=== PATIENT | male | born 1950 | race Caucasian/White ===

== ENCOUNTER → 2019-10-17 15:36 | Outpatient (CLI) | payer MEDICARE, OTHER, SELFPAY ==
--- NOTE | 2019-10-17 15:58 | CT_ITS ---
STUDY: CT RIGHT KNEE WITHOUT CONTRAST REASON FOR EXAM: Male, 69 years old. osteoarthritis, juan - Images are for roboted assistance surgery. (No other history is available). RADIATION DOSAGE (If Supplied By Facility): CTDIvol = ( 32.19 ) mGy, DLP = ( 1989.50 ) mGycm TECHNIQUE: Transaxial CT imaging of the knee was performed. Coronal and sagittal images were reformatted. Individualized dose optimization techniques were used for this CT. COMPARISON: None. FINDINGS: The hip and ankle are in anatomic alignment. Cortical margins are intact. Soft tissues are unremarkable. Severe narrowing sclerosis and osteophytosis of the medial and lateral femoral condyle and medial and lateral tibial plateau. Slight lateral subluxation. Normal proximal tibiofibular articulation. There is a moderate joint effusion. The quadriceps tendon is grossly normal. The patellar tendon is grossly normal. Normal Hoffa''s fat pad. The soft tissues are unremarkable. CT/Extremity Lower without Contra IMPRESSION: Severe tricompartmental osteoarthrosis and lateral subluxation of the tibia. Electronically Signed: Jayden Davenport MD at 23:01 EDT , Service support ,
== END ==
PROVIDERS: PCP Family Medicine; Referring Provider Orthopaedic Surgery; Visit Provider Orthopaedic Surgery
DX: M17.11 Unilateral primary osteoarthritis, right knee (principal)
CPT/HCPCS: 73700; 93005

== ENCOUNTER 2019-11-06 09:45 | Observation (INO) | payer MEDICARE, OTHER, SELFPAY ==
--- NOTE | 2019-10-17 15:55 | SDCEKG_ITS ---
Test Reason : PRE-OP Blood Pressure : / mmHG Vent. Rate : 077 BPM Atrial Rate : 077 BPM P-R Int : 186 ms QRS Dur : 092 ms QT Int : 370 ms P-R-T Axes : 037 -14 042 degrees QTc Int : 418 ms Normal sinus rhythm Normal ECG When compared with ECG of 23-SEP-2006 16:18, No significant change was found Confirmed by MONICA WEBSTER, NIKKI ([id number]), book editor LUKE HUSSEIN ([id number]) on 10/24/2019 3:46:59 PM Referred By: Luis Eduardo Bear Confirmed By:NIKKI ANDERSON MD
[2019-10-17 17:16] LABS: Absolute Lymphocyte Count 1.02 X10^3/uL (0.83-4.51); Basophil# 0.01 X10^3/uL; Basophil% 0.1 % (0-1); Eosinophil# 0.13 X10^3/uL; Eosinophils% 1.3 % (0-5); Hematocrit 40.3 % (40-54); Hemoglobin 13.1 g/dL (13.0-16.5); Lymphocyte # 1.02 X10^3/ul (4.0); Lymphocyte % 10.3 % (19-41); Mean Corp Hgb Conc 32.5 g/dL (32-36); Mean Corpuscular Hgb 30.3 pg (27.0-32.0); Mean Corpuscular Volume 93.3 fL (80-94); Mean Platelet Vol. 10.9 fl (6.2-12.0); Monocyte# 0.67 X10^3/uL; Monocyte% 6.8 % (0-10); NRBC Flagged by Analyzer 0 % (0-5); Neutrophil # 8.02 X10^3/uL (2.7-7.7); Neutrophil % 81.3 % (47-70); Platelet Count 321 K/mm3 (150-450); RBC Distribution Width CV 13.2 % (11.6-14.6); RBC Distribution Width SD 45.9 fl (35.1-43.9); Red Blood Count 4.32 M/mm3 (4.6-6.2); White Blood Count 9.9 K/mm3 (4.4-11.0)
[2019-10-17 18:13] LABS: Anion Gap 6 (5-15); BUN 15 mg/dL (7-18); BUN/Creat Ratio 18.5 RATIO (10-20); Calcium,Total 9.3 mg/dL (8.5-10.1); Chloride 102 mmol/L (98-107); Creatinine, Serum 0.81 mg/dL (0.70-1.30); EST Glomerular Filtration Rate 101 mL/min (>60); Est Glom Filt Rate - Afr Amer 122 mL/min (>60); Glucose 94 mg/dL (74-106); Potassium 4.2 mmol/L (3.5-5.1); Sodium Level 138 mmol/L (136-145)
[2019-11-01 12:21] LABS: Absolute Lymphocyte Count 0.88 X10^3/uL (0.83-4.51); Absolute Neutrophil Count 4.7 X10^3/uL (2.0-7.7); Basophil# 0.02 X10^3/uL; Basophil% 0.3 % (0-1); Eosinophil# 0.07 X10^3/uL; Eosinophils% 1.1 % (0-5); Hematocrit 40.1 % (37-54); Hemoglobin 12.9 g/dL (13.0-16.5); Lymphocyte # 0.88 X10^3/ul (4.0); Mean Corp Hgb Conc 32.2 g/dL (32-36); Mean Corpuscular Volume 93.3 fL (80-94); Mean Platelet Vol. 10.9 fl (6.2-12.0); Monocyte# 0.59 X10^3/uL; Monocyte% 9.4 % (0-10); NRBC Flagged by Analyzer 0 % (0-5); Neutrophil # 4.71 X10^3/uL (2.7-7.7); Platelet Count 272 K/mm3 (150-450); RBC Distribution Width CV 12.9 % (11.6-14.6); RBC Distribution Width SD 43.5 fl (35.1-43.9); White Blood Count 6.3 K/mm3 (4.4-11.0)
[2019-11-01 12:57] LABS: Anion Gap 9 (5-15); BUN 11 mg/dL (7-18); BUN/Creat Ratio 13.9 RATIO (10-20); Calcium,Total 9.2 mg/dL (8.5-10.1); Chloride 103 mmol/L (98-107); Creatinine, Serum 0.79 mg/dL (0.55-1.30); EST Glomerular Filtration Rate 103 mL/min (>60); Est Glom Filt Rate - Afr Amer 125 mL/min (>60); Glucose 102 mg/dL (74-106); Sodium Level 140 mmol/L (136-145)
[2019-11-01 15:38] LABS: Hemoglobin A1c 5.2 % (3.8-5.6)
[2019-11-03 15:31] LABS: Probe Check PASS; Specimen Processing Control PASS
[2019-11-06] VITALS (13 sets, daily range): BP systolic 109–197; BP diastolic 49–95; PULSE 61–96; RESP 16–18; TEMP 36.5–37; O2SAT 98–100; BMI 43.0
[2019-11-06] MEDS: Acetaminophen 500 MG Tablet 1000 MG PO ×3 (08:52→22:11)
[2019-11-06] MEDS: Lactated Ringers 1,000 ML 125 ML IV ×4 (09:11→22:18)
[2019-11-06 09:36] LABS: Bedside Glucose 109 mg/dL (70-110)
--- NOTE | 2019-11-06 10:15 | KNEE_PTH ---
PATIENT: BRETT SINGER LOC: [facility] U#:[id number] AGE/SX: 69/M ROOM: [facility]314 RE11/06/[address]: Dr. Luis Eduardo Bear DO : 1950 BED: 1 DIS: 11/07/2019 SPEC #: [id number] RECD: 11/06/19 13:56 STATUS: LANG REAmy #: [id number] ACE: 11/06/19 10:[address]: Luis Eduardo Bear DEPT: SURGICAL PATHOLOGY RECD BY: Rere Singh ENTERED: 11/06/19 14:53 SP TYPE: TOTAL KNEE OTHR DR: MD Dr. Dakota Henderson III, MD Tissues: Knee, NOS Procedures: Decalcification bone/plaque Surgery Specimen Level IV HEADER OPERATION: ERAS, total knee replacement robotic arm assist PRE-OP DIAGNOSIS: Unilateral primary osteoarthritis TISSUE SUBMITTED: Right knee bone MICROSCOPIC DIAGNOSIS Right knee, total knee replacement: Pieces of bone with degenerative osteoarthritic changes. Fibroadipose tissue, fibroconnective tissue and reactive synovial tissue. Focal changes consistent with pseudogout. BELKIS:ankita 11/10/19 MICROSCOPIC DESCRIPTION Slides are reviewed. GROSS DESCRIPTION Received is one container designated right knee bone. The specimen consists of multiple fragments of live-yellow bone measuring in aggregate 11 x 10 x 3.5 cm. Also in the specimen container are multiple fragments of yellow-white soft tissue measuring in aggregate 11 x 8 x 3 cm. A number of bony fragments contain articular surfaces consistent with tibial plateau and femoral condyle and displaying prominent osteophyte formation, eburnation, and bone erosion. Senior Credit Analyst sections are submitted in two cassettes as follows: 1 - soft tissue, 2 - bone after decalcification. / BELKIS:ankita 11/07/19 TC:5 CPT: 96104, 70497
--- NOTE | 2019-11-06 13:45 | RAD_ITS ---
STUDY: X-RAY - RIGHT KNEE REASON FOR EXAM: Postop knee arthroplasty. TECHNIQUE: 2 view(s) of the knee. COMPARISON: CT images 10/17/2019. FINDINGS: There is a right total knee arthroplasty without evidence of complication. There is gas in the soft tissues and overlying skin chely. RAD/Knee 1 or 2 Views IMPRESSION: Uncomplicated right total knee arthroplasty. Electronically Signed: Jameson Sevilla MD at 14:24 EDT Tel , Service support ,
[2019-11-06 13:51] LABS: Bedside Glucose 81 mg/dL (70-110)
[2019-11-06 14:05] LABS: Hematocrit 38.1 % (40-54); Hemoglobin 12.4 g/dL (13.0-16.5); Mean Corp Hgb Conc 32.5 g/dL (32-36); Mean Corpuscular Hgb 30.3 pg (27.0-32.0); Mean Corpuscular Volume 93.2 fL (80-94); Mean Platelet Vol. 10.5 fl (6.2-12.0); Platelet Count 290 K/mm3 (150-450); RBC Distribution Width CV 12.8 % (11.6-14.6); RBC Distribution Width SD 43.7 fl (35.1-43.9); Red Blood Count 4.09 M/mm3 (4.6-6.2); White Blood Count 9.3 K/mm3 (4.4-11.0)
[2019-11-06 14:10] LABS: Anion Gap 5 (5-15); BUN 8 mg/dL (7-18); BUN/Creat Ratio 11.1 RATIO (10-20); Calcium,Total 9.1 mg/dL (8.5-10.1); Chloride 108 mmol/L (98-107); Creatinine, Serum 0.72 mg/dL (0.70-1.30); EST Glomerular Filtration Rate 115 mL/min (>60); Est Glom Filt Rate - Afr Amer 139 mL/min (>60); Estimated Creatinine Clearance 76.35 ml/min; Glucose 104 mg/dL (74-106); Potassium 3.8 mmol/L (3.5-5.1); Sodium Level 142 mmol/L (136-145)
[2019-11-06] MEDS: hydroCHLOROthiazide 6.25mg TAB 6.25 MG PO (15:38)
[2019-11-06] MEDS: Gabapentin 600 MG Tablet PO (16:20)
[2019-11-06] MEDS: Bisoprolol Fumarate 5 MG Tablet 10 MG PO (16:21)
[2019-11-06] MEDS: Aspirin 325 MG Tablet PO (16:21)
[2019-11-06] MEDS: metFORMIN HCl 500 MG Tablet PO (17:40)
[2019-11-06] MEDS: Cefazolin 1 GM/50 ML BAG IV (18:54)
[2019-11-06] MEDS: Atorvastatin Calcium 40 MG Tablet PO (22:09)
[2019-11-06] MEDS: oxyCODONE 5 MG Tablet PO (22:11)
[2019-11-06] MEDS: Senna/Docusate Sodium 1 Tablet 2 TABLET PO (22:11)
[2019-11-07 02:55] VITALS: BP 136/81; PULSE 66; RESP 18; TEMP 37.1; O2SAT 99; BMI 43.0
[2019-11-07] MEDS: Cefazolin 1 GM/50 ML BAG IV (02:57)
[2019-11-07 05:54] LABS: Hematocrit 32.2 % (40-54); Hemoglobin 10.5 g/dL (13.0-16.5); Mean Corp Hgb Conc 32.6 g/dL (32-36); Mean Corpuscular Hgb 30.6 pg (27.0-32.0); Mean Corpuscular Volume 93.9 fL (80-94); Mean Platelet Vol. 10.7 fl (6.2-12.0); Platelet Count 227 K/mm3 (150-450); RBC Distribution Width CV 12.9 % (11.6-14.6); RBC Distribution Width SD 43.8 fl (35.1-43.9); Red Blood Count 3.43 M/mm3 (4.6-6.2); White Blood Count 10.1 K/mm3 (4.4-11.0)
[2019-11-07] MEDS: oxyCODONE 5 MG Tablet PO ×2 (05:58→10:54)
[2019-11-07] MEDS: Acetaminophen 500 MG Tablet 1000 MG PO ×2 (05:58→13:28)
[2019-11-07] MEDS: Lactated Ringers 1,000 ML 125 ML IV (05:58)
[2019-11-07 06:05] LABS: Anion Gap 8 (5-15); BUN 9 mg/dL (7-18); BUN/Creat Ratio 12.9 RATIO (10-20); Calcium,Total 8.4 mg/dL (8.5-10.1); Chloride 103 mmol/L (98-107); EST Glomerular Filtration Rate 120 mL/min (>60); Est Glom Filt Rate - Afr Amer 145 mL/min (>60); Estimated Creatinine Clearance 76.35 ml/min; Glucose 121 mg/dL (74-106); Potassium 3.7 mmol/L (3.5-5.1); Sodium Level 139 mmol/L (136-145)
[2019-11-07 07:23] VITALS: PULSE 80; BMI 43.0
[2019-11-07] MEDS: Allopurinol 100 MG Tablet 200 MG PO (07:38)
[2019-11-07] MEDS: Senna/Docusate Sodium 1 Tablet 2 TABLET PO (07:41)
[2019-11-07] MEDS: Lisinopril 40 MG Tablet PO (07:42)
[2019-11-07] MEDS: amLODIPine 10 MG Tablet PO (07:42)
[2019-11-07] MEDS: Aspirin 325 MG Tablet PO (07:42)
[2019-11-07 07:44] VITALS: BP 126/65; PULSE 71; RESP 18; TEMP 36.9; O2SAT 97
--- NOTE | 2019-11-07 07:49 | PCM.PN.ORT ---
Subjective: Patient sitting at bedside eating breakfast. Patient states pain is well-managed. Patient denies chest pain, shortness of breath, calf pain, nausea vomiting. Patient states he is ready for discharge home today. Objective: Dressing is clean dry intact. Negative signs or symptoms of DVT. Vital signs labs were all reviewed and noted in the medical record. Patient is afebrile. Patient has good plantar flexion dorsiflexion of the operative leg foot. Patient has no respiratory distress, speaking in full sentences. - Physical Exam Vitals/I&O's: Vital Signs Temp Pulse Resp BP Pulse Ox 98.5 F 71 18 126/65 H 97 11/07/19 07:44 11/07/19 07:44 11/07/19 07:44 11/07/19 07:44 11/07/19 07:44 Oxygen Flow Rate (L/min) 6 Oxygen Delivery Method Room Air Weight: 140 kg Body Mass Index (BMI) 43.0 Finger Stick Blood Glucose 81 Intake and Output for Last 24 Hours 11/05/19 11/06/19 11/07/19 23:59 23:59 23:59 Intake Total 3462.08 / 3462.08 1322.91 / 1322.91 Output Total 1250 / 1250 650 / 650 Balance 2212.08 / 2212.08 672.91 / 672.91 General: Alert, Oriented x3 HEENT: PERRLA Oral: Moist Mucosa Neurological: Cranial nerves II-XII grossly intact Psych/Mental Status: Normal Affect, Alert and oriented to time, place, person, mood and affect Laboratory Results 11/06/19 08:47: POC Glucose 109 11/06/19 13:44: POC Glucose 81 11/06/19 13:50: WBC 9.3, RBC 4.09 L, Hgb 12.4 L, Hct 38.1 L, MCV 93.2, MCH 30.3, MCHC 32.5, RDW Std Deviation 43.7, RDW Coeff of Baldev 12.8, Plt Count 290, MPV 10.5 11/06/19 13:50: Sodium 142, Potassium 3.8, Chloride 108 H, Carbon Dioxide 29.0, Anion Gap 5, BUN 8, Creatinine 0.72, Estim Creat Clear Calc 76.35, Est GFR (MDRD) Af Amer 139, Est GFR (MDRD) Non-Af 115, BUN/Creatinine Ratio 11.1, Glucose 104, Calcium 9.1 11/07/19 05:42: WBC 10.1, RBC 3.43 L, Hgb 10.5 L, Hct 32.2 L, MCV 93.9, MCH 30.6, MCHC 32.6, RDW Std Deviation 43.8, RDW Coeff of Baldev 12.9, Plt Count 227, MPV 10.7 11/07/19 05:42: Sodium 139, Potassium 3.7, Chloride 103, Carbon Dioxide 28.0, Anion Gap 8, BUN 9, Creatinine 0.70, Estim Creat Clear Calc 76.35, Est GFR (MDRD) Af Amer 145, Est GFR (MDRD) Non-Af 120, BUN/Creatinine Ratio 12.9, Glucose 121 H, Calcium 8.4 L Current Medications Acetaminophen (Tylenol) 1,000 mg PO Q8 [facility] Last Admin: 11/07/19 05:58 Dose: 1,000 mg Documented by: Allopurinol (Zyloprim) 200 mg PO DAILY@0800 [facility] Last Admin: 11/07/19 07:38 Dose: 200 mg Documented by: Amlodipine Besylate (Norvasc) 10 mg PO DAILY [facility] Last Admin: 11/07/19 07:42 Dose: 10 mg Documented by: Aspirin (Aspirin) 325 mg PO BIDCM [facility] Last Admin: 11/07/19 07:42 Dose: 325 mg Documented by: Atorvastatin Calcium (Lipitor) 40 mg PO QHS [facility] Last Admin: 11/06/19 22:09 Dose: 40 mg Documented by: Bisoprolol Fumarate (Zebeta) 10 mg PO DAILY [facility] Last Admin: 11/06/19 16:21 Dose: 10 mg Documented by: Cholecalciferol (Vitamin D (25mcg)) 2,000 unit PO DAILY [facility] Hydrochlorothiazide () 6.25 mg PO DAILY [facility] Last Admin: 11/06/19 15:38 Dose: 6.25 mg Documented by: Insulin Human Lispro (Humalog Kwikpen (Bkc)) 1 - 6 unit SC Q4H PRN PRN; Protocol PRN Reason: BG>/= 180, SEE PROTOCOL Lisinopril (Zestril) 40 mg PO DAILY [facility] Last Admin: 11/07/19 07:42 Dose: 40 mg Documented by: [facility] Last Admin: 11/06/19 17:40 Dose: 500 mg Documented by: Ondansetron HCl (Zofran) 4 mg IV Q8H PRN PRN PRN Reason: NAUSEA Oxycodone HCl (Oxyir) 5 - 10 mg PO Q4H PRN PRN PRN Reason: Pain Score 4-10/10 Last Admin: 11/07/19 05:58 Dose: 5 mg Documented by: Promethazine HCl (Phenergan) 12.5 mg IM Q6H PRN PRN; Protocol PRN Reason: NAUSEA/VOMITING Senna/Docusate Sodium (Senokot-S, Kinsey-Colace) 2 tablet PO BID [facility] Last Admin: 11/07/19 07:41 Dose: 2 tablet Documented by: Sodium Chloride () 10 - 40 ml IV UD PRN PRN Reason: SALINE FLUSH Medical Necessity - Tobacco Use Smoking Status: Former smoker Assessment/Plan Status post right total knee arthroplasty Plan 1. Continue all pain medications as prescribed 2. Continue physical therapy today, weight-bear as tolerated with walker 3. Aspirin 325 mg 1 p.o. daily x30 days for postop DVT prophylaxis 4. Encourage incentive spirometry 5. Discharge home today after p.m. therapy 6. Follow-up as scheduled, see pink sheet 7. Continue physical therapy outpatient at [facility] [place]
--- NOTE | 2019-11-07 07:56 | DCINST_ITS ---
Discharge Diet: No Restrictions Discharge Activity: May Not Drive, May Shower, Use Walker May shower in (days): 3 Ice area for (Minutes): 20 - each hour while awake. Weight Bearing Status: Weight bearing as tolerated Elevate: Operative Extremity Additional Activity Instructions:: Wear elastic stockings for 2 weeks after your surgery. Call your doctor if your incision/area has: Continuous Slow Oozing, Sudden Increased Bleeding, Increased Pain/ Swelling, Increased Redness, Foul Smelling Discharge Call your doctor if you observe: Fever of 101 or Higher, Coldness, Increased Pain - in extremity, Numbness or Tingling, Change in Color, Calf discomfort, Uncontrolled pain Change Dressing in (Days):: 0 - and daily as needed. Remove Dressing in (days):: 8 Cleanse incision/area with: Soap & Water Allergies/Adverse Reactions: Allergies No Known Allergies Allergy (Verified 10/24/19 09:24) Medications to take at Discharge Allopurinol 2 tab PO DAILY 10/24/19 Amlodipine Besylate [Norvasc] 10 mg PO DAILY 10/24/19 Atorvastatin Calcium [Lipitor] 40 mg PO QHS 10/24/19 Bisoprolol/Hydrochlorothiazide [Bisoprolol-Hctz 10-6.25 mg Tab] 1 ea PO DAILY 10/24/19 Cholecalciferol (Vitamin D3) [Vitamin D3] 50 mcg PO DAILY 10/24/19 Lisinopril 40 mg PO DAILY 10/24/19 Metformin HCl 500 mg PO BID 10/24/19 Acetaminophen [Tylenol] 1,000 mg PO Q8 tablet 11/07/19 Aspirin 325 mg PO BIDCM tablet 11/07/19 Oxycodone [Oxyir] 5 - 10 mg PO Q4H PRN PRN 7 Days #84 tab 11/07/19 The following prescriptions were given: Oxycodone [Oxyir] 5 - 10 mg PO Q4H PRN PRN 7 Days #84 tab PRN Reason: Pain Score 4-10/10 Prescription Printed Orders to be completed after discharge: MELITON MARCH Time Frame: 11/03/19, Facility: [facility], Location: [facility] Primary Care Physician: Dakota Penny III, MD [Primary Care Provider] - Test Results: Test results from this visit will be discussed in further detail at your follow- up appointment, if applicable. Please Follow Up With: Rajan Segal PA-C When: as scheduled (see pink sheet)
[2019-11-07 09:33] VITALS: BP 133/75; PULSE 70
[2019-11-07] MEDS: hydroCHLOROthiazide 6.25mg TAB 6.25 MG PO (09:34)
[2019-11-07] MEDS: Bisoprolol Fumarate 5 MG Tablet 10 MG PO (09:34)
[2019-11-07] MEDS: metFORMIN HCl 500 MG Tablet PO (09:36)
--- NOTE | 2019-11-07 10:00 | CASEMGMT ---
YENIFER JACKSON note: Intro role of CM to patient in room. He is dc'ing today. States he has equipment @ home. Lives in 1 story home with 2 steps into home with his Hetal who can assist. F/U PT appt is made @ [facility] Wednesday @ 1:30 pm and he has transportation. YENIFER JACKSON recommended shower chair for his walk in shower. Pt states friend has one he can use. Lynsey STARK RN ACM
--- NOTE | 2019-11-07 10:29 | NURSING ---
retail pharmacy called and notified this RN that pt's insurance will not cover oxyir prescription and that it will cost $35.45 here or if pt wants paper script can take it to another facility. This RN notified pt of same and states that he has [employer] plan with [facility] but that [facility] will only give a 3 day supply and that he would like to purchase meds from [facility] retail pharmacy but that it will have to wait until his comes- as he doesn't have a card or money. This RN returned call to pharmacy- [facility] notified of same. Understanding verbalized.
[2019-11-07 10:55] VITALS: BP 152/82; PULSE 69; RESP 18; TEMP 36.7; O2SAT 98; BMI 43.0
== END 2019-11-07 13:56 | disposition home or self-care (01) ==
LOC: SDC 10:25 → MS3 10:25
PROVIDERS: Physician Assistant; Admitting Provider Orthopaedic Surgery; PCP Family Medicine; Referring Provider Orthopaedic Surgery; Visit Provider Orthopaedic Surgery
PROC: 0SRC0JZ Replacement of Right Knee Joint with Synthetic Substitute, Open Approach (ICD-10-PCS; CPT 27447; principal; 2019-11-06 09:45)
DX: M17.11 Unilateral primary osteoarthritis, right knee (principal); E11.9 Type 2 diabetes mellitus without complications; E78.00 Pure hypercholesterolemia, unspecified; I10 Essential (primary) hypertension; M46.86 Other specified inflammatory spondylopathies, lumbar region; M10.9 Gout, unspecified; M21.161 Varus deformity, not elsewhere classified, right knee; Z79.84 Long term (current) use of oral hypoglycemic drugs; Z79.899 Other long term (current) drug therapy; Z87.891 Personal history of nicotine dependence
CPT/HCPCS: 01400; 27447; 64447; S2900; 36415; 73560; 80048; 82962; 83036; 85025; 85027; 87081; 87635; 88305; 88311; 96361; 96365; 96366; 97110; 97161; 97166; 97530; 97535; 99218; 99251; C1776; G2023; J7120; G0378; G0379; G0463; U0003

== ENCOUNTER → 2020-05-28 12:10 | Outpatient (CLI) | payer MEDICARE, OTHER, SELFPAY ==
[2019-11-06 15:22] VITALS: BMI 43.0
--- NOTE | 2020-05-28 12:50 | CT_ITS ---
CT of the left lower extremity, [facility] protocol INDICATION: The left knee pain. TECHNIQUE: Multiple thin section axial CT images the left lower extremity were obtained through the left hip joint, left knee joint, left ankle and filmed in bone windows. Furthermore, multiple sagittal and coronal reconstructions were performed. Dose limiting techniques were utilized. FINDINGS: No abnormal soft tissue mass, lymphadenopathy, fluid collection. Normal appearance to the musculature of the left lower extremity. Edema of the subcutaneous fat of the distal calf and ankle likely from passive congestion. Examination the left hip joint demonstrates moderate joint space narrowing, osteophyte formation, and subchondral cyst formation consistent with moderate arthrosis. Examination of the left knee joint demonstrates of the severe joint space narrowing osteophyte formation and lateral tibial plateau translation consistent with severe arthrosis. Examination of the left ankle joint is normal. IMPRESSION: Severe left knee arthrosis. Electronically Signed: Julien Alicea MD at 16:59 EST Tel , Service support , CT/Extremity Lower without Contra
--- NOTE | 2020-05-28 12:56 | EKG12_ITS ---
Test Reason : PREOP Blood Pressure : / mmHG Vent. Rate : 064 BPM Atrial Rate : 064 BPM P-R Int : 170 ms QRS Dur : 088 ms QT Int : 382 ms P-R-T Axes : 045 -06 044 degrees QTc Int : 394 ms Normal sinus rhythm Normal ECG Confirmed by MONICA WEBSTER, NIKKI ([id number]), newspaper copy editor ZAK BURNETT ([id number]) on 05/29/2020 12:37:57 PM Referred By: Luis Eduardo Bear Confirmed By:NIKKI ANDERSON MD
[2020-05-28 13:22] LABS: Absolute Lymphocyte Count 1.15 X10^3/uL (0.83-4.51); Absolute Neutrophil Count 5.7 X10^3/uL (2.0-7.7); Basophil# 0.01 X10^3/uL; Basophil% 0.1 % (0-1); Eosinophil# 0.09 X10^3/uL; Eosinophils% 1.2 % (0-5); Hematocrit 40.3 % (40-54); Hemoglobin 13.1 g/dL (13.0-16.5); Lymphocyte # 1.15 X10^3/ul (4.0); Lymphocyte % 15.1 % (19-41); Mean Corp Hgb Conc 32.5 g/dL (32-36); Mean Corpuscular Volume 92.2 fL (80-94); Mean Platelet Vol. 11.5 fl (6.2-12.0); Monocyte# 0.68 X10^3/uL; Monocyte% 8.9 % (0-10); NRBC Flagged by Analyzer 0 % (0-5); Neutrophil # 5.66 X10^3/uL (2.7-7.7); Neutrophil % 74.3 % (47-70); Platelet Count 231 K/mm3 (150-450); RBC Distribution Width CV 13.2 % (11.6-14.6); RBC Distribution Width SD 45.1 fl (35.1-43.9); Red Blood Count 4.37 M/mm3 (4.6-6.2); White Blood Count 7.6 K/mm3 (4.4-11.0)
[2020-05-28 13:41] LABS: Hemoglobin A1c 5.4 % (3.8-5.6)
[2020-05-28 13:47] LABS: Anion Gap 5 (5-15); BUN 17 mg/dL (7-18); BUN/Creat Ratio 22.3 RATIO (10-20); Calcium,Total 9.2 mg/dL (8.5-10.1); Chloride 107 mmol/L (98-107); Creatinine, Serum 0.76 mg/dL (0.70-1.30); EST Glomerular Filtration Rate 108 mL/min (>60); Est Glom Filt Rate - Afr Amer 131 mL/min (>60); Glucose 89 mg/dL (74-106); Potassium 4.3 mmol/L (3.5-5.1); Sodium Level 140 mmol/L (136-145)
== END ==
PROVIDERS: PCP Family Medicine; Referring Provider Orthopaedic Surgery; Visit Provider Orthopaedic Surgery
DX: Z01.810 Encounter for preprocedural cardiovascular examination (principal); Z01.818 Encounter for other preprocedural examination; M21.162 Varus deformity, not elsewhere classified, left knee; E11.9 Type 2 diabetes mellitus without complications
CPT/HCPCS: 36415; 73700; 80048; 83036; 85025; 93005

== ENCOUNTER → 2020-06-12 09:49 | Outpatient (CLI) | payer MEDICARE, OTHER, SELFPAY ==
[2019-11-06 15:22] VITALS: BMI 43.0
== END ==
PROVIDERS: PCP Family Medicine; Referring Provider Physician Assistant; Visit Provider Physician Assistant
DX: Z11.59 Encounter for screening for other viral diseases (principal)
CPT/HCPCS: 87635; C9803; U0005; U0003

== ENCOUNTER 2020-08-01 03:09 | Outpatient (RCR) | payer MEDICARE, OTHER, SELFPAY ==
[2019-11-06 15:22] VITALS: BMI 43.0
[2020-08-01] MEDS: COVID-19 VACC, MRNA(PFIZER)/PF 30 MCG/0.3 ML SYRINGE IM (17:09)
[2020-08-22] MEDS: COVID-19 VACC, MRNA(PFIZER)/PF 30 MCG/0.3 ML SYRINGE IM (16:40)
== END 2020-08-22 23:59 | disposition home or self-care (01) ==
LOC: IMMUN 03:09
PROVIDERS: PCP Family Medicine; Visit Provider Family Medicine
DX: Z23 Encounter for immunization (principal)
CPT/HCPCS: 0001A; 0002A; 91300

== ENCOUNTER → 2022-04-16 | Outpatient (CLI) | payer MEDICARE, OTHER, SELFPAY ==
--- NOTE | 2022-04-16 14:56 | MRI_ITS ---
STUDY: MRI LUMBAR SPINE WITHOUT CONTRAST REASON FOR EXAM: Male, 72 years old. STENOSIS,SPONDYLOSIS W/ RADICULOPATHY. Low back pain. TECHNIQUE: Standardized fat and water weighted pulse sequences were obtained in the sagittal and axial planes. COMPARISON: None FINDINGS: No fracture or acute osseous abnormality. Extensive vertebral endplate degenerative changes and irregularity throughout the lumbar spine. 2 mm degenerative anterolisthesis L1 on L2 and L2 on L3. 3 mm degenerative anterolisthesis of L5 on S1. Mild left scoliosis centered at L3. Alignment otherwise anatomic. CONUS terminates at the level of the L1 vertebral body with normal contour and signal. At L1-2 and L2-3, diffuse disc bulge, severe facet degeneration with degenerative buckling of the ligamentum flavum causes moderate spinal canal narrowing and moderate bilateral foraminal narrowing. At L3-4, vertebral body osteophytes, greater on the left, and moderate facet degeneration causes mild spinal canal narrowing. Vertebral body and facet osteophytes extend into and moderately now the bilateral foramina. At L4-5, diffuse disc bulge with underlying osteophytes and severe bilateral facet degeneration with degenerative buckling of the ligamentum flavum causes focal moderate to severe spinal canal narrowing with high-grade narrowing of the subarticular zones, and moderate crowding but no michael compression of the cauda equina; CSF is still visible adjacent to the nerve roots. Disc and osteophyte extend into and causes moderate bilateral foraminal narrowing. At L5-S1, severe bilateral facet degeneration with anterolisthesis and unroofing of the disc causes high-grade narrowing of the left subarticular zone and left foramen. Moderate narrowing of the right subarticular zone and right foramen. No acute findings in the paraspinal soft tissues. MRI/Spine Lumbar (Routine) IMPRESSION: Extensive degenerative changes particularly at L4-5 and L5-S1. The most likely sources for radiculopathy by the bilateral subarticular zones of L4-5 (L5 nerve roots), and the left subarticular zone and foramen of L5-S1 (left L5 and S1 nerve roots). Discogenic and facet type pain could also arise from several levels particularly L5-S1. Electronically Signed: Humphrey Cobb MD at 3:52 EST ,
== END | disposition home or self-care (01) ==
LOC: MRI 14:51
PROVIDERS: PCP Family Medicine; Visit Provider Orthopaedic Surgery
DX: M48.061 Spinal stenosis, lumbar region without neurogenic claudication (principal); M47.26 Other spondylosis with radiculopathy, lumbar region
CPT/HCPCS: 72148